=== PATIENT | male | born 1990 | race American Indian/Alaskan Native ===

== ENCOUNTER 2016-12-12 05:54 | Emergency (ER) | payer OTHER ==
--- NOTE | 2016-12-12 06:11 | Emergency Department Report ---
ED Extremity Problem HPI - General Chief complaint: Pain General Stated complaint: LACERATION TO HAND Time Seen by Provider: 12/12/16 06:11 Source: patient Mode of arrival: Ambulatory Limitations: No Limitations - History of Present Illness Initial comments: 26-year-old male past medical history smoker presents with complaint of pain to the left distal middle and index fingers. Patient states that while at work last night he was manipulating a device involving a metal chain and the metal chain briefly pinched his distal left index fingertip and middle fingertip. Denies any other trauma. Visible abrasions to left distal fingertip and nail bed distal left middle finger. Patient states his last tetanus vaccine was over 5 years ago. Patient has fingers wrapped with gauze on initial exam. Accident occurred at 11 PM while at work last night. Patient is awake alert and oriented 3 MD Complaint: extremity pain -: This evening Location: left History of Same: No Severity scale (0 -10): 6 Quality: burning, aching Consistency: intermittent - Related Data Previous Rx's Medication Instructions Recorded Last Taken Type Ibuprofen [Motrin] 800 mg PO Q8H PRN #30 tablet 07/18/14 Unknown Rx Cephalexin [Keflex] 500 mg PO Q12HR #14 cap 12/12/16 Unknown Rx Ibuprofen [Motrin] 800 mg PO Q8HR PRN #25 tablet 12/12/16 Unknown Rx Allergies Allergy/AdvReac Type Severity Reaction Status Date / Time strawberry AdvReac Swelling Verified 12/12/16 05:58 ED Review of Systems ROS: Stated complaint: LACERATION TO HAND Other details as noted in HPI Constitutional: denies: chills, fever Eyes: denies: eye pain, eye discharge, vision change ENT: denies: ear pain, throat pain Respiratory: denies: cough, shortness of breath, wheezing Cardiovascular: denies: chest pain, palpitations Endocrine: no symptoms reported Gastrointestinal: denies: abdominal pain, nausea, diarrhea Genitourinary: denies: urgency, dysuria Musculoskeletal: denies: back pain, joint swelling, arthralgia Skin: denies: rash, lesions Neurological: denies: headache, weakness, paresthesias Psychiatric: denies: anxiety, depression Hematological/Lymphatic: denies: easy bleeding, easy bruising ED Past Medical Hx - Past Medical History Previous Medical History?: Yes Hx Asthma: Yes - Surgical History Past Surgical History?: No - Social History Smoking Status: Current Every Day Smoker Substance Use Type: None - Medications Home Medications: Home Medications Medication Instructions Recorded Confirmed Last Taken Type Ibuprofen [Motrin] 800 mg PO Q8H PRN #30 tablet 07/18/14 Unknown Rx Cephalexin [Keflex] 500 mg PO Q12HR #14 cap 12/12/16 Unknown Rx Ibuprofen [Motrin] 800 mg PO Q8HR PRN #25 tablet 12/12/16 Unknown Rx ED Physical Exam - General Limitations: No Limitations General appearance: alert, in no apparent distress - Head Head exam: Present: atraumatic, normocephalic - Eye Eye exam: Present: normal appearance, PERRL, EOMI - ENT ENT exam: Present: mucous membranes moist - Neck Neck exam: Present: normal inspection - Respiratory Respiratory exam: Present: normal lung sounds bilaterally. Absent: respiratory distress - Cardiovascular Cardiovascular Exam: Present: regular rate, normal rhythm. Absent: systolic murmur, diastolic murmur, rubs, gallop - GI/Abdominal GI/Abdominal exam: Present: soft, normal bowel sounds - Rectal Rectal exam: Present: deferred - Extremities Exam Extremities exam: Present: normal inspection - Expanded Upper Extremity Exam Left Forearm Wrist exam: Present: normal inspection, full ROM Hand Wrist exam: Present: tenderness (tenderness at distal middle and index fingers past), abrasion (abrasions overlying the volar aspect of index and middle fingers left hand), laceration (visible laceration horizontally across left distal middle finger nail), other (there is no snuffbox tenderness on exam) Hand L/R Back: 1 - Laceration [facility] through the nailbed no visible subungual hematoma. Capillary refill less than 1 second, distal sensation intact 2 - Abrasions here superficial 3 - Abrasion here Neuro motor exam: Present: wrist extension intact, thumb opposition intact, thumb IP flexion intact, thumb adduction intact, fingers 2-5 abduction intact, other Vascular: Present: normal capillary refill (capillary refill less than one second in all fingers), radial pulse (distal radial pulse intact) - Back Exam Back exam: Present: normal inspection, full ROM - Neurological Exam Neurological exam: Present: alert, oriented X3, CN II-XII intact, normal gait - Psychiatric Psychiatric exam: Present: normal affect, normal mood - Skin Skin exam: Present: warm, dry, intact, normal color. Absent: rash ED Course Vital Signs 12/12/16 05:58 Temperature 98.1 F Pulse Rate 80 Respiratory 18 Rate Blood Pressure 140/99 O2 Sat by Pulse 99 Oximetry - Laceration /Wound Repair Left Distal Finger Wound Location: upper extremity (distal middle finger nail) Wound Length (cm): 1 Wound's Depth, Shape: superficial Wound Explored: clean Irrigated w/ Saline (ccs): 500 (distal hand cleaned with iodine bath. Hand and fingertips vigorously scrubbed with chlorhexidine scrub and fingertips and nail edges cleaned with nail fish cleaner/scrape) Betadine Prep?: Yes Anesthesia: Lidocaine w/ Epi Wound Debrided: minimal Wound Repaired With: Dermabond (Dermabond generously placed over distal nail where there is visible laceration overlying nail.A/P: Laceration crosses over half of the nail but it is otherwise intact) Sterile Dressing Applied?: Yes (gauze placed overlying with finger splint) ED Medical Decision Making - Medical Decision Making A/P: Nailbed laceration, fingertip injury 1- x-ray shows no apparent fracture. pt given fingertip splint for middle finger 2- tetanus updated today 3- short course Motrin when necessary. Keflex 7 day course 4- distal fingertips wrapped with gauze for padding. I advised patient to return to the ED if he notices any pus drainage erythema significant pain or bleeding at fingertips. Patient stated he understood my instructions Critical care attestation.: If time is entered above; I have spent that time in minutes in the direct care of this critically ill patient, excluding procedure time. ED Disposition Clinical Impression: Contusion of fingertip Qualifiers: Encounter type: initial encounter Qualified Code(s): S60.00XA - Contusion of unspecified finger without damage to nail, initial encounter Nailbed laceration, finger Qualifiers: Encounter type: initial encounter Qualified Code(s): S61.319A - Laceration without foreign body of unspecified finger with damage to nail, initial encounter Disposition: TO HOME OR SELFCARE Is pt being admited?: No Does the pt Need Aspirin: No Condition: Stable Instructions: Finger Laceration (ED), Abrasion (ED), Skin Adhesive Care (ED) Prescriptions: Cephalexin [Keflex] 500 mg PO Q12HR #14 cap Ibuprofen [Motrin] 800 mg PO Q8HR PRN #25 tablet PRN Reason: Pain Referrals: SERGE ALONZO MD [Staff Physician] - 3-5 Days [facility] [Provider Group] - 3-5 Days Forms: Work/School Release Form(ED) Time of Disposition: 06:55
[2016-12-12 06:14] VITALS: BP 140/99
[2016-12-12] MEDS ORDERED: NORCO 5/325 PO ONE (06:21)
[2016-12-12] MEDS ORDERED: BOOSTRIX IM ONE (06:21)
[2016-12-12] MEDS ORDERED: KEFLEX PO ONE (06:30)
--- NOTE | 2016-12-14 09:07 | XRay Report ---
FINAL REPORT EXAM: XRAY FINGER LEFT 2ND DIGIT HISTORY: Patient hurt index and middle finger this a.m in machinery at work. TECHNIQUE: A single frontal radiograph of the left hand and 2 additional radiographs of the 2nd and 3rd digits were obtained. No prior studies are available for comparison. FINDINGS: There is a 1.2 cm linear sliver of apparent bone seen adjacent to the cortex of the midshaft of the 2nd proximal phalanx, at its ulnar-dorsal aspect (seen on the lateral and oblique images). Similar appearing thin linear slivers of apparent bone are also seen extending along the volar base/midshaft of the 3rd middle phalanx and dorsal base/midshaft of the 3rd distal phalanx (seen on the lateral image). Given reported trauma, these may represent partial cortical fractures, though their appearance is somewhat unusual. Correlation with physical exam in these locations is recommended. There is no dislocation. No other discrete osseous abnormality is seen. No significant soft tissue abnormality is identified. IMPRESSION: Thin linear slivers of apparent bone/ossification extending along the ulnar/dorsal 2nd proximal phalanx, volar 3rd middle phalanx, and dorsal 3rd distal phalanx, as described. These may represent unusual partial cortical fractures, and correlation with mechanism of injury and physical exam is recommended.
== END 2016-12-12 07:08 | disposition home or self-care (01) ==
LOC: ED 05:54
DX: S61.313A Laceration without foreign body of left middle finger with damage to nail, initial encounter (principal); F17.200 Nicotine dependence, unspecified, uncomplicated; J45.909 Unspecified asthma, uncomplicated; Z91.018 Allergy to other foods; W31.89XA Contact with other specified machinery, initial encounter; Y93.89 Activity, other specified; Y99.8 Other external cause status; Y92.89 Other specified places as the place of occurrence of the external cause
CPT/HCPCS: 90471; 90715